=== PATIENT | male | born 1945 | race Caucasian/White ===

== ENCOUNTER 2021-12-09 23:07 | Emergency (ER) | payer MEDICARE, MEDICAID, SELFPAY ==
[2021-12-10 00:41] VITALS: BP 152/87; PULSE 84; RESP 20; TEMP 37.1; O2SAT 96; BMI 27.9
[2021-12-10 01:01] LABS: Hematocrit 42.6 % (42.0-52.0); Hemoglobin 14.7 g/dl (14.0-18.0); Mean Corpuscular HGB Conc 34.5 g/dl (31.0-36.0); Mean Corpuscular Hemoglobin 30.9 pg (27.0-33.0); Mean Corpuscular Volume 89.5 fL (80.0-98.0); Mean Platelet Volume 10.3 fL (9.4-12.4); Platelet Count 215 X10*3/uL (160-400); Red Blood Count 4.76 X10*6/uL (4.60-5.80); Red Cell Distribution Width 14.8 % (11.0-16.0); White Blood Count 14.3 X10*3/uL (4.8-10.8)
[2021-12-10 01:14] LABS: Alanine Aminotransferase 28 U/L (0-40); Albumin Level 4.5 g/dL (3.5-5.0); Alkaline Phosphatase 119 U/L (39-117); Anion Gap 18 (12-20); Aspartate Amino Transferase 22 U/L (5-37); Bilirubin Total 0.7 mg/dL (0.0-1.0); Blood Urea Nitrogen 13 mg/dL (9-16); Calcium 9.3 mg/dL (8.4-10.2); Carbon Dioxide 23 mmol/L (22-29); Chloride 101 mmol/L (96-108); Creatinine Clr Calc Pharmacy 74.9; Estimated Glomerular Filt Rate > 60; Glucose Random 163 mg/dL (60-115); Potassium 3.9 mmol/L (3.3-5.1); Sodium 138 mmol/L (135-145); Total Protein 7.3 g/dL (6.5-8.0)
[2021-12-10 01:52] VITALS: BP 172/72; PULSE 74; RESP 16; TEMP 36.6; O2SAT 97
--- NOTE | 2021-12-10 05:03 | PC.NURSE ---
Assumed care of pt at 0500. Pt c/o neck pain/stiffness. Denies headache.
[2021-12-10 05:05] VITALS: BP 161/68; PULSE 75; RESP 13; O2SAT 96
--- NOTE | 2021-12-10 05:07 | PC.NURSE ---
VS assessed. h/o dm, cannot recall what meds he takes
--- NOTE | 2021-12-10 05:17 | ED_ITS ---
HPI - General Adult General Chief complaint: General Medical Stated complaint: LEFT NECK PAIN Time Seen by Provider: 12/10/21 05:17 Source: patient Mode of arrival: EMS Limitations: no limitations History of Present Illness HPI narrative: 76-year-old male patient who presents emergency department for evaluation neck pain x3 days. The patient states the pain came on gradually on the left side of his neck and the back of his head. He states the pain is a constant, dull tightness which is worse with movement. He states the pain is moderate intensity. He states that he is having difficulty moving his neck secondary to the pain. He has been taking Tylenol with some relief the pain. He states the pain now is spreading to the right side of his neck. He denied numbness or weakness. He denied loss of bowel or bladder control. He denied fever, chills, sore throat. Related Data Previous Rx's Medication Instructions Recorded cyclobenzaprine 5 mg tablet 5 mg PO TID PRN muscle spasm or 12/10/21 pain #14 tabs Allergies Allergy/AdvReac Type Severity Reaction Status Date / Time Sulfa (Sulfonamide Allergy Mild RASH Unverified 12/25/19 15:18 Antibiotics) [Sulfa (Sulfonamides)] lisinopril [LISINOPRIL] Allergy Unknown UNKNOWN Unverified 12/25/19 15:18 losartan [LOSARTAN] Allergy Unknown UNKNOWN Unverified 12/25/19 15:18 sulfamethoxazole Allergy Unknown UNKNOWN Unverified 12/25/19 15:18 [SULFAMETHOXAZOLE] Review of Systems Review of Systems: Yes all other systems are reviewed and are negative [facility] Past Medical History [facility] Narrative: Past medical history: Diabetes mellitus-recently diagnosed. Social history: The patient smokes 1 pack of cigarettes per day times many years. Denies alcohol use. Denies drug use. He states he lives with his partner for 40 years and has 3 stepdaughters. Social History Social History Alcohol intake: never Patient Tobacco Use Status: Current someday Tobacco user Smoked in Last 30 Days: Yes Advance Directives: No Physical Exam ED Vital Signs: Vital Signs - 24 hr 12/10/21 00:41 12/10/21 01:52 12/10/21 05:05 Temperature 98.7 F 97.8 F Pulse Rate 84 74 75 Respiratory Rate 20 16 13 Blood Pressure 152/87 H 172/72 H 161/68 H Pulse Oximetry 96 97 96 Oxygen Delivery Method Room Air Room Air Room Air BMI result Body Mass Index 27.9 Const General: cooperative and no acute distress Orientation/consciousness: oriented to person and oriented to place Limitations: no limitations HENMT Head: Yes normal to inspection, Yes normocephalic and Yes atraumatic Ears: external ears normal General nose exam: Normal external nose present Face and sinus: Yes normal facial exam Mouth: Normal oral and palatal mucosa present Throat: Yes posterior oropharynx normal Eyes General: appearance normal, both eyes and all related structures Pupils: Equal, round and reactive pupils present Neck Other: The patient has moderate to severe tenderness palpation of his left trapezius muscle with spasm of this muscle. He has [id number] tenderness palpation of his right trapezius muscle with no spasm. There is no cervical spine tenderness. Neck: Yes normal visual inspection, Yes no lymphadenopathy, Yes trachea midline and Yes supple Chest Chest palpation & inspection: normal inspection of the chest and normal palpat ion of entire chest wall Resp Effort & Inspection: normal respiratory effort and able to speak in complete sentences Auscultation: clear to auscultation bilaterally Cardio Rate: regular rate Rhythm: regular rhythm Heart sounds: S1 normal heart sound present, S2 normal heart sound present and no murmurs GI Inspection: Yes normal to inspection Palpation (GI): Soft to palpation, nontender and no guarding Auscultation: normal bowel sounds General: Yes no CVA tenderness Back/Spine/Pelvis Back: no CVA tenderness Skin General skin exam: no rashes or lesions noted Neuro General: oriented to person and oriented to place Cranial nerves: Yes CN's II-XII intact bilaterally and Yes Equal, round and reactive pupils present Cognition (Neuro): normal cognition Motor exam (neuro): 5/5 motor strength present throughout Extrem General: Yes normal to inspection Psych Appearance: grossly normal Speech and movement: Normal speech and movement present Affect: normal affect Attitude: cooperative Thought process: Normal thought process present Thought content: Normal thought content present Course Course Course Narrative: 76-year-old female who presents emergency department for evaluation of neck pain x3 days which is got progressively worse. The patient has been taking Tylenol with some relief his pain. He has had no concerning symptoms such as fever, chills, numbness, weakness, loss of bowel or bladder control. His vital signs revealed elevated blood pressure of 152/87 otherwise was unremarkable. Examination did reveal tenderness palpation of the left and right trapezius muscles with the left being greater than right and spasm of the left trapezius muscles. He has no cervical spine tenderness. Patient's presentation is consistent with muscle strain with spasm. Patient was given cyclobenzaprine 5 mg orally and ibuprofen 400 mg orally. He was prescribe cyclobenzaprine 5 mg 3 times a day as needed for spasm and pain and advised to take ibuprofen and Tylenol. He was given printed and verbal instructions and discharged home Medical Decision Making Lab Data Result diagrams: 12/10/21 00:54 12/10/21 00:54 Labs: Lab Results 12/10/21 12/10/21 Range/Units 00:54 00:54 WBC 14.3 H (4.8-10.8) X10*3/uL RBC 4.76 (4.60-5.80) X10*6/uL Hgb 14.7 (14.0-18.0) g/dl Hct 42.6 (42.0-52.0) % MCV 89.5 (80.0-98.0) fL MCH 30.9 (27.0-33.0) pg MCHC 34.5 (31.0-36.0) g/dl RDW 14.8 (11.0-16.0) % Plt Count 215 (160-400) X10*3/uL MPV 10.3 (9.4-12.4) fL Absolute Nucleated RBC 0.000 (0.0-0.012) X10*3/uL Nucleated RBC % (auto) 0.0 (0.0-0.2) /100WBC Sodium 138 (135-145) mmol/L Potassium 3.9 (3.3-5.1) mmol/L Chloride 101 (96-108) mmol/L Carbon Dioxide 23 (22-29) mmol/L Anion Gap 18 (12-20) BUN 13 (9-16) mg/dL Creatinine 0.98 (0.5-1.4) mg/dL Estim Creat Clear Calc 74.9 Estimated GFR > 60 Random Glucose 163 H (60-115) mg/dL Calcium 9.3 (8.4-10.2) mg/dL Total Bilirubin 0.7 (0.0-1.0) mg/dL AST 22 (5-37) U/L ALT 28 (0-40) U/L Alkaline Phosphatase 119 H (39-117) U/L Total Protein 7.3 (6.5-8.0) g/dL Albumin 4.5 (3.5-5.0) g/dL Discharge Plan Discharge Clinical Impression: Acute cervical myofascial strain Qualifiers: Encounter type: initial encounter Qualified Code(s): S16.1XXA - Strain of muscle, fascia and tendon at neck level, initial encounter Patient Disposition: Home, Self-Care Instructions: Cervical Strain (ED) Additional Instructions: Your exam is consistent with a sprain of the muscles of your neck and spasm of your neck muscles. Take Flexeril (cyclobenzaprine) 5 mg pills, 1 pill every 6-8 hours as needed for pain or spasm. This medication will make you sleepy. Do not drive or work while taking this medication. Take ibuprofen 200 mg pills, 2 pills every 6 hours as needed for pain. Take Tylenol (acetaminophen) 500 mg pills, 2 pills every 4 to 6 hours as needed for pain. Apply ice to the muscles or neck for 10-15 minutes 4 times a day, this should help reduce the pain and spasm. Follow-up with your doctor in 2 days. Please return to the emergency department if your symptoms get worse or if you develop any symptoms that are concerning to you. Prescriptions: New cyclobenzaprine 5 mg tablet 5 mg PO TID PRN (Reason: muscle spasm or pain) Qty: 14 0RF
[2021-12-10] MEDS: Ibuprofen 400 MG TABLET PO (05:40)
[2021-12-10] MEDS: Cyclobenzaprine HCl 5 MG TABLET PO (05:41)
--- NOTE | 2021-12-10 05:42 | PC.NURSE ---
administered meds per MAR
[2021-12-10 05:50] VITALS: BP 158/71; PULSE 78; RESP 18; O2SAT 96
--- NOTE | 2021-12-10 05:54 | PC.NURSE ---
Contacted pt's friend Mei for him to be picked up. Pt to be discharged and is waiting on ride.
== END 2021-12-10 06:55 | disposition home or self-care (01) ==
PROVIDERS: Emergency Provider Emergency Medicine Emergency Medical Services; PCP Internal Medicine
DX: S16.1XXA Strain of muscle, fascia and tendon at neck level, initial encounter (principal); X58.XXXA Exposure to other specified factors, initial encounter; F17.200 Nicotine dependence, unspecified, uncomplicated; Y93.9 Activity, unspecified; Y92.9 Unspecified place or not applicable; Y99.9 Unspecified external cause status
CPT/HCPCS: 36415; 80053; 85027; 99283; 99284

== ENCOUNTER 2023-08-05 08:51 | Inpatient (IN) | payer MEDICARE, MEDICAID, SELFPAY ==
[2023-08-05] VITALS (16 sets, daily range): BP systolic 114–217; BP diastolic 53–129; PULSE 60–93; RESP 14–20; TEMP 36–36.8; O2SAT 94–99; BMI 31.3; BMI 30.7
--- NOTE | ~2023-08-05 | CT_ITS ---
EXAMINATION: CT HEAD WITHOUT CONTRAST (STROKE PROTOCOL) CLINICAL INFORMATION: Stroke protocol. Right-sided deficits. COMPARISON: CT brain dated 04/20/2011. TECHNIQUE: Contiguous axial imaging was performed from the skull base to vertex without intravenous administration of contrast. This CT examination was performed using dose optimization techniques as appropriate, variously including the following: *Automated exposure control *Adjustment of mA and/or kV according to patient size (this includes techniques or standardized protocols for targeted exams where dose is matched to indication/reason for exam; i.e. extremities or head) *Use of iterative reconstruction technique DLP: 690 mGy-cm FINDINGS: The ventricles and sulci are enlarged consistent with diffuse atrophy. No visualized masses or midline shift are seen. There is no intra-axial or extra-axial hemorrhage. There are no fluid collections. Decreased attenuation is seen in the periventricular white matter compatible with chronic small vessel ischemic disease. The mercer-white discrimination is preserved. The included paranasal sinuses and mastoid air cells are well aerated. The calvarium is intact. CT/CT head for stroke IMPRESSION: No intracranial hemorrhage or mass effect. Generalized atrophy and chronic small vessel white matter ischemic changes. This critical result was discussed with Dr. Yin at 9:10 AM hours on 08/05/2023. It was ascertained that the content and urgency of the report was understood at the time of direct communication.
--- NOTE | ~2023-08-05 | XR_ITS ---
EXAMINATION: XR TIBIA AND FIBULA, RIGHT CLINICAL INFORMATION: Pre-MRI question bb mid lower leg COMPARISON: None available. TECHNIQUE: AP and lateral views of the right tibia and fibula were obtained. FINDINGS: No acute visible fracture or dislocation. Potential enthesopathy along the inferior margin of the lateral malleolus. Joint space alignment are maintained. No radiopaque foreign body identified. Soft tissues are unremarkable. XR/XR tibia fibula RT 2V IMPRESSION: 1. No acute visible fracture or dislocation. 2. Potential enthesopathy along the inferior margin of the lateral malleolus. 3. No radiopaque foreign body identified.
--- NOTE | ~2023-08-05 | CT_ITS ---
EXAMINATION: CT HEAD WITHOUT CONTRAST CLINICAL INFORMATION: Altered mental status. COMPARISON: 08/05/2023. MRI performed 08/05/2023. TECHNIQUE: Contiguous axial imaging was performed from the skull base to vertex without intravenous administration of contrast. This CT examination was performed using dose optimization techniques as appropriate, variously including the following: *Automated exposure control *Adjustment of mA and/or kV according to patient size (this includes techniques or standardized protocols for targeted exams where dose is matched to indication/reason for exam; i.e. extremities or head) *Use of iterative reconstruction technique DLP: 672 mGy-cm FINDINGS: There is again seen cerebral volume loss with prominence of the lateral and the third ventricles. The cortical sulci are widened appropriately. The fourth ventricle and basal cisterns are normally outlined. There is again seen mild to moderate bilateral periventricular and central white matter image attenuation. The small areas of infarction seen on MRI are not appreciated on CT scan. There is no acute territorial defect, hemorrhage or midline shift. The extra-axial spaces are unremarkable. Calvarium: Intact. Maxillofacial sinuses and mastoids: Clear as visualized. CT/CT head/brain wo IV con IMPRESSION: 1. No acute intracranial process seen. The small infarct seen on MRI is not appreciated on CT. 2. Mild to moderate cerebral volume loss with chronic small vessel ischemic changes.
--- NOTE | ~2023-08-05 | CT_ITS ---
EXAMINATION: CTA NECK WITH CONTRAST (STROKE) CTA BRAIN WITH CONTRAST (STROKE) CLINICAL INFORMATION: Right-sided deficit COMPARISON: None available. TECHNIQUE: CTA of the head and neck was performed in the axial plane from the mediastinum to the skull vertex using 140 mL Omnipaque 350 intravenous contrast. Additional reformatted multiplanar images including maximum intensity projection MIP images are generated on the CT workstation. This CT examination was performed using dose optimization techniques as appropriate, variously including the following: *Automated exposure control *Adjustment of mA and/or kV according to patient size (this includes techniques or standardized protocols for targeted exams where dose is matched to indication/reason for exam; i.e. extremities or head) *Use of iterative reconstruction technique DLP: 1513 mGy-cm FINDINGS: The degree of stenosis determined by criteria similar to NASCET. CTA NECK: The aortic arch and origin/proximal segments of the great vessels are opacified above the [id number]. The visualized segments of the bilateral subclavian arteries are patent. The visualized cervical segments of the common carotid arteries are patent bilaterally. The common carotid artery bifurcations demonstrate mural calcifications extending into the proximal segments of the cervical internal carotid arteries bilaterally. There is approximately 50% focal stenosis of the proximal left cervical ICA and 70% focal stenosis of the proximal right cervical ICA. There are remaining segments of the cervical internal carotid arteries are patent bilaterally. Calcified atherosclerotic plaque at the origin of the left vertebral artery causing at least moderate to severe stenosis. The origin of the right vertebral artery is patent. The cervical segments of the vertebral arteries are patent bilaterally. No other site of hemodynamically significant stenosis, dissection, or aneurysm. The visualized branches of the external carotid arteries are unremarkable bilaterally. CTA HEAD: Mild atherosclerotic calcifications of the bilateral carotid siphons. Anterior circulation: The petrous, cavernous, and supraclinoid segments of the internal carotid arteries are patent bilaterally. The major branches of the anterior and middle cerebral arteries as well as the anterior communicating artery complex are patent. No large vessel occlusion, saccular aneurysm, or dissection. Posterior circulation: The intracranial vertebral arteries are patent bilaterally. The basilar artery is normal in caliber however tortuous. The posterior cerebral and superior cerebellar arteries arise normally from the basilar summit. No aneurysm. On delayed imaging, the venous structures demonstrate normal contrast opacification. No filling defect. No abnormal intraparenchymal enhancement. Soft tissues: No suspicious neck mass or cervical adenopathy. Lungs: Emphysematous changes in the visualized lung apices. Bones: No acute osseous abnormality. No lytic or blastic osseous lesions. Multilevel degenerative changes of the visualized spine. CT/CT angio head neck stroke IMPRESSION: -CTA head demonstrates no large vessel occlusion, saccular aneurysm, or dissection. -CTA neck demonstrates approximately 70% focal stenosis of the proximal right cervical ICA and 50% focal stenosis of the proximal left ICA. There is also a calcified atherosclerotic plaque causing at least moderate to severe focal stenosis of the left vertebral artery origin. Please note that the aortic arch and origin/proximal segments of the great vessels are outside of the [id number].
--- NOTE | ~2023-08-05 | MR_ITS ---
EXAMINATION: MR BRAIN WITHOUT CONTRAST CLINICAL INFORMATION: Result right-sided deficit. COMPARISON: CT scan of the head and CTA of the head and neck earlier 08/05/2023. TECHNIQUE: MRI of the brain was obtained using routine sequences without contrast. The study was limited due to patient claustrophobia and axial T2 images were not obtained. FINDINGS: There are multiple small foci of increased diffusion signal in the left splenium of the corpus callosum which has corresponding low ADC map signal and has hyperintense FLAIR signal, consistent with an evolving acute infarct. In addition, there are multiple small foci of increased diffusion signal without restriction and with corresponding hyperintense FLAIR signal in the bilateral centra semiovale, consistent with subacute infarcts. No mass effect or midline shift is seen. The ventricles and sulci commensurately prominent consistent with diffuse volume loss. There are patchy scattered areas of increased FLAIR signal in the periventricular and subcortical white matter, most consistent with chronic microvascular ischemic disease. There are chronic infarcts in the anterior frontal lobes adjacent to the anterior horns of the lateral ventricles, and also in the bilateral centra semiovale and basal ganglia. No extra-axial fluid collections are seen. The brainstem appears normal. There are numerous punctate foci of low gradient signal in the subcortical regions of the bilateral cerebral and cerebellar hemispheres, which may be consistent with cerebral amyloid angiopathy. The cerebellar tonsils have normal contour and position, and the craniocervical junction appears normal. Marrow signal and midline structures are normal. The major intracranial flow-voids at the level of the [place] are preserved. The dural venous sinus flow-voids are maintained. The mastoid air cells and paranasal sinuses are well-aerated. MR/MR head/brain wo con IMPRESSION: 1. There is a small focus of increased diffusion signal with restriction in the left splenium of the corpus callosum, consistent with an evolving acute infarct. In addition, there are multiple small foci of increased diffusion signal without restriction in the bilateral centra semiovale, consistent with subacute infarcts. 2. There is diffuse volume loss. There are chronic microvascular ischemic changes and chronic infarcts. 3. There is no evidence of a large acute territorial infarct or acute hemorrhage There are numerous punctate foci of low gradient signal in the subcortical regions of the bilateral cerebral and cerebellar hemispheres, which may be consistent with cerebral amyloid angiopathy. 4. This critical result was discussed with Thania Yin by telephone on 08/05/2023 at 1:40 PM and it was ascertained that the content and urgency of the report was understood at the time of direct communication.
--- NOTE | 2023-08-05 08:54 | ECG_ITS ---
Test Reason : STROKE Blood Pressure : / mmHG Vent. Rate : 097 BPM Atrial Rate : 097 BPM P-R Int : 180 ms QRS Dur : 150 ms QT Int : 384 ms P-R-T Axes : -02 -20 110 degrees QTc Int : 487 ms Normal sinus rhythm Left bundle branch block Abnormal ECG When compared with ECG of 06-OCT-2019 21:42, No significant change was found Referred By: Thania Yni Electronically Signed By:SANGEETA ROSARIO
--- NOTE | 2023-08-05 08:55 | ED.NEUROSD ---
HPI - Neuro Symptoms/Deficit General Chief Complaint: Stroke Stated Complaint: R SIDED WEAKNESS SLURRED SPEECH Time Seen by Provider: 08/05/23 08:53 Source: patient and EMS Mode of arrival: EMS History of Present Illness HPI Narrative: 77-year-old male, everyday smoker, denies any chronic anticoagulation presents via EMS with sudden onset of inability to move right upper and lower extremity although sensation is intact, initially had slurred speech which has resolved also reported a headache which has resolved, EMS notes that he is hypertensive. Related Data Previous Rx's ?Medication ?Instructions ?Recorded cyclobenzaprine 5 mg tablet 5 mg PO TID PRN muscle spasm or 12/10/21 pain #14 tabs Allergies Allergy/AdvReac Type Severity Reaction Status Date / Time Sulfa (Sulfonamide Allergy Mild RASH Verified 08/05/23 09:35 Antibiotics) [Sulfa (Sulfonamides)] lisinopril [LISINOPRIL] Allergy Unknown UNKNOWN Verified 12/10/21 05:46 losartan [LOSARTAN] Allergy Unknown UNKNOWN Verified 12/10/21 05:46 sulfamethoxazole Allergy Unknown UNKNOWN Verified 12/10/21 05:46 [SULFAMETHOXAZOLE] Review of Systems Review of Systems: Pertinent positives and negatives as stated in HPI PMFSH Past Medical History Source: nursing notes reviewed Social History Social History Alcohol intake: never Patient Tobacco Use Status: Current someday Tobacco user Smoked in Last 30 Days: Yes Use of substances other than those prescribed or required for medical reasons: No Advance Directives: No Advance Directives Information Provided: No Physical Exam Vital Signs: Vital Signs: Last Vital Signs Temp 96.8 F 08/05/23 09:18 Pulse 87 08/05/23 09:56 Resp 14 08/05/23 09:18 BP 176/85 H 08/05/23 09:59 Pulse Ox 99 08/05/23 09:18 O2 Del Method Room Air 08/05/23 09:18 BMI result Body Mass Index 31.3 VITAL SIGNS: Reviewed. GENERAL: Well developed, well nourished, in no acute distress. HEAD: Normocephalic/atraumatic EYES: PERRLA, EOMI EARS: Ext canals without abnormality NOSE: Nares patent bilateral OROPHARYNX: no oral lesions noted, posterior pharynx clear NECK: Supple, no adenopathy LUNGS: Normal breath sounds. No adventitious sounds or accessory muscle use. CARDIOVASCULAR: Regular rate and rhythm without noted murmurs, no JVD or lower extremity edema. ABDOMEN: Soft, non-tender, non-distended with bowel sounds. MUSCULOSKELETAL: No tenderness, deformities, or effusions noted on gross inspection. EXTREMITIES: No cyanosis, clubbing or edema. SKIN: Inspection of the skin reveals no rashes. NEUROLOGIC: Alert and oriented x 4. Please see NIH stroke scale Medications Administered Discontinued Medications Generic Name Dose Route Start Last Admin Trade Name Frenatalya PRN Reason Stop Dose Admin Iohexol 70 ml 08/05/23 09:19 08/05/23 09:21 Iohexol 350 Mg/Ml 100 Ml Infus..Btl IV 08/05/23 09:20 70 ml ONCE ONE Administration Labetalol HCl 5 mg 08/05/23 08:53 08/05/23 09:15 Labetalol Hcl 100 Mg/20 Ml Vial IVPUSH 08/05/23 08:54 5 mg ONCE ONE Administration Labetalol HCl 10 mg 08/05/23 09:37 08/05/23 09:41 Labetalol Hcl 100 Mg/20 Ml Vial IVPUSH 08/05/23 09:38 10 mg ONCE ONE Administration Labetalol HCl 10 mg 08/05/23 09:54 08/05/23 09:56 Labetalol Hcl 100 Mg/20 Ml Vial IVPUSH 08/05/23 09:55 10 mg ONCE ONE Administration Medical Decision Making Medical Decision Making MDM Narrative: 77-year-old male with history and clinical presentation, NIH-5, patient within the window, patient will receive 5 mg of labetalol for persistent hypertension as indicated in his long as no bleed patient will receive TNK. 0857: Called neurologist on-call who agrees with TNK if BP and no bleed or LVO(this would be discussed with neurointerventionalist) 0910: [facility] chronic atrophy. 0939: Repeat NIH demonstrates full range of motion and resolution of right upper extremity symptoms but right lower extremity still remains with small effort against gravity. IV infiltrated in the CT scanner, at to replace IV access and obtain CT angio of head and neck. Despite 5 mg of labetalol patient remains hypertensive and this was then followed by an additional 10 mg of labetalol at 09:37, patient remains hypertensive an additional 10 mg of labetalol is ordered and if unsuccessful will proceed with IV labetalol drip so that TNK can be given. 1004: CT angio head/neck no elbow, SBP-176, patient appears to have complete resolution of right upper and lower extremity deficits. Although there is noted 70% focal stenosis of the proximal right ICA in 50% of proximal left ICA. Will contact Dr. Decker to ensure that we will still proceed with TNK as patient has had complete resolution of symptoms although not necessarily associated with aggressive blood pressure control. NIH-0 1007: Dr. Decker agrees with proceeding with aspirin/MRI and no TNK at this time. 1014: I discussed case with inpatient hospitalist who accepts admission. I reviewed all investigations and hematologic indices are negative for leukocytosis/anemia/thrombocytopenia. Point of care INR within normal limits but laboratory coagulation studies are pending. Chemistry indices are negative for LEA or electrolyte derangements, CK is noted to be mildly elevated, patient does have an left bundle-branch block on EKG without complaints of chest pain or discomfort but high sensitivity troponin is pending, patient received aspirin and routine MRI has been ordered. Differential Diagnosis Differential Diagnoses: The differential diagnosis associated with the presentation includes Please see the discussion above Admission/Observation Consideration of admission/observation: Escalation of care including admission/observation considered Please see the discussion above Consult Healthcare Provider Management of the patient was discussed with: Hospitalist and Slurry Man Please see the discussion above Lab Data MDM Lab Attestation statement: I reviewed the patient's lab results. Please see the discussion above 08/05/23 09:43 08/05/23 09:43 Labs: Lab Results 08/05/23 08/05/23 Range/Units 09:32 09:43 WBC 8.9 (4.8-10.8) X10*3/uL RBC 4.98 (4.60-5.80) X10*6/uL Hgb 15.7 (14.0-18.0) g/dl Hct 45.5 (42.0-52.0) % MCV 91.4 (80.0-98.0) fL MCH 31.5 (27.0-33.0) pg MCHC 34.5 (31.0-36.0) g/dl RDW 14.2 (11.0-16.0) % Plt Count 199 (160-400) X10*3/uL MPV 11.3 (9.4-12.4) fL Immature Gran % (Auto) 0.3 (0.0-0.4) % Neut % (Auto) 75.9 H (45-73) % Lymph % (Auto) 11.5 L (20-40) % [place] % (Auto) 8.9 (2-11) % Eos % (Auto) 1.8 (0-4) % Baso % (Auto) 1.6 (0-2) % Lymph # (Auto) 1.0 L (1.2-4.9) X10*3/uL [place] # (Auto) 0.8 (0.1-1.2) X10*3/uL Eos # (Auto) 0.2 (0.0-0.4) X10*3/uL Baso # (Auto) 0.1 (0.0-0.2) X10*3/uL Abs Immat Gran (auto) 0.03 (0.00-0.03) X10*3/uL Absolute Neuts (auto) 6.7 (2.0-8.3) x10*3/uL Absolute Nucleated RBC 0.000 (0.0-0.012) X10*3/uL Nucleated RBC % (auto) 0.0 (0.0-0.2) /100WBC Sodium 138 (135-145) mmol/L Potassium 3.9 (3.3-5.1) mmol/L Chloride 103 (96-108) mmol/L Carbon Dioxide 25 (22-29) mmol/L Anion Gap 14 (12-20) BUN 10 (9-16) mg/dL Creatinine 0.90 (0.5-1.4) mg/dL Estim Creat Clear Calc 79.7 Estimated GFR > 60 POC Glucose 136 H (60-115) mg/dL Random Glucose 140 H (60-115) mg/dL Calcium 9.4 (8.4-10.2) mg/dL Total Creatine Kinase 426 H (38-174) U/L Independent Interpretation I performed an independent interpretation of an: EKG Interpretation: Normal sinus rhythm, LBBB, HR-97, no STEMI, VA/QTC are within normal limits. There is no EKG for comparison. Radiology Impression Discussion of test interpretation with radiology: I have reviewed the radiologist's reading. Radiologist Impression: Please see the discussion above External Record Review External record reviewed: Outpatient record and Prior outpatient labs Chronic Conditions Patient?s care impacted by: Hypertension NIH Stroke Scale Internal: Initial- Upon Arrival Level of Consciousness: Alert Level of Consciousness Questions: Answers both questions correctly Level of Consciousness Commands: Performs both tasks correctly Best Gaze: Normal Visual: No visual loss Facial Palsy: Normal Motor Arm (Right): No movement Motor Arm (Left): No drift Motor Leg (Right): No movement Motor Leg (Left): No drift Limb Ataxia: Absent Sensory: Normal Best Language: No aphasia Dysarthia: Normal Extinction and Inattention: No abnormality Score: 8 Critical Care Time Critical Care Time Critical Care Time: Yes Total Critical Care Time: 60 Attestation: I personally attest to this time spent taking care of the patient. Discharge Plan Discharge Clinical Impression: Malignant hypertension, Brain TIA Patient Disposition: Admitted As Inpatient Print Language: Kiswahili
[2023-08-05] MEDS: Labetalol HCL 100 MG/20 ML VIAL IVPUSH (09:15)
[2023-08-05] MEDS: iohexoL 350 MG/ML 100 ML INFUS..BTL 70 ML IV (09:21)
[2023-08-05 09:37] LABS: Glucose, Whole Blood 136 mg/dL (60-115)
[2023-08-05] MEDS: Labetalol HCL 100 MG/20 ML VIAL 10 MG IVPUSH ×3 (09:41→10:56)
[2023-08-05 09:51] LABS: MANUAL DIFF FLAG NO
[2023-08-05 10:07] LABS: Anion Gap 14 (12-20); Basophils Absolute Auto 0.1 X10*3/uL (0.0-0.2); Basophils Percent Auto 1.6 % (0-2); Blood Urea Nitrogen 10 mg/dL (9-16); Calcium 9.4 mg/dL (8.4-10.2); Carbon Dioxide 25 mmol/L (22-29); Chloride 103 mmol/L (96-108); Creatinine Clr Calc Pharmacy 79.7; Eosinophils Absolute Auto 0.2 X10*3/uL (0.0-0.4); Eosinophils Percent Auto 1.8 % (0-4); Estimated Glomerular Filt Rate > 60; Glucose Random 140 mg/dL (60-115); Hematocrit 45.5 % (42.0-52.0); Hemoglobin 15.7 g/dl (14.0-18.0); Imm Gran Abs Auto 0.03 X10*3/uL (0.00-0.03); Imm Gran Pct Auto 0.3 % (0.0-0.4); Lymphocytes Percent Auto 11.5 % (20-40); Mean Corpuscular HGB Conc 34.5 g/dl (31.0-36.0); Mean Corpuscular Hemoglobin 31.5 pg (27.0-33.0); Mean Corpuscular Volume 91.4 fL (80.0-98.0); Mean Platelet Volume 11.3 fL (9.4-12.4); Monocytes Absolute Auto 0.8 X10*3/uL (0.1-1.2); Monocytes Percent Auto 8.9 % (2-11); Neutrophils Absolute Auto 6.7 x10*3/uL (2.0-8.3); Neutrophils Percent Auto 75.9 % (45-73); Platelet Count 199 X10*3/uL (160-400); Potassium 3.9 mmol/L (3.3-5.1); Red Blood Count 4.98 X10*6/uL (4.60-5.80); Red Cell Distribution Width 14.2 % (11.0-16.0); Sodium 138 mmol/L (135-145); White Blood Count 8.9 X10*3/uL (4.8-10.8)
[2023-08-05 10:15] LABS: INTERNATIONAL NORM RATIO 0.9 (0.9-1.1); Prothrombin Time 11.5 SEC (11.1-13.3); Troponin-I High Sensitivity 9.3 ng/L (<3.5-35.0)
[2023-08-05 10:18] LABS: Partial Thromboplastin Time 30.3 SEC (26.0-36.8)
[2023-08-05 10:32] LABS: Prothrombin Time Whole Bld POC 13.1 sec (11.1-13.5); ~PT, ~INR - Anti Coag Clinic 1.1 (0.9-1.1)
[2023-08-05] MEDS: Aspirin 81 MG TAB.CHEW 324 MG PO (10:47)
[2023-08-05] MEDS: Morphine Sulfate 2 MG/ML CARTRIDGE 1 MG IVPUSH (10:47)
[2023-08-05 11:17] LABS: Estimated Average Glucose 140 mg/dL; Hemoglobin A1c % 6.5 % (<6.0)
[2023-08-05 11:19] LABS: Cholesterol 285 mg/dL (<200); HDL Cholesterol 41 mg/dL (>40); LDL Cholesterol Calculated 190 mg/dL (<100); Triglycerides 273 mg/dL (<150)
--- NOTE | 2023-08-05 11:21 | PHA.MEDREC ---
Pharmacy Consult ? Medication Reconciliation Pharmacy has completed the medication reconciliation. spoke with patient to confirm. He reports that he was taking a garlic and parsley combo pill he orders from [facility] but ran out and has not been taking. He ordered prevagen but has not started taking.
[2023-08-05] MEDS: Enoxaparin Sodium 40 MG/0.4 ML SYRINGE SUBCUT (11:25)
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
[2023-08-05 12:20] LABS: Stroke Lab Use COMPLETE
--- NOTE | 2023-08-05 13:02 | PM.EVENT ---
Event Note Date of Service: 08/05/23 Event Note: PT reporting confusion, slurred speech, R hand numbness and feeling funny and weak all over . He is here with TIA, brain MRI pending. BP on admission 205/109, 198/100. Given 10mg IV labetalol. BP now 129/59. On exam, pt seems foggy but a&ox3. Strength BUE 5/5, RLE 4/5, LLE 5/5. Speech somewhat slurred. CN II-XII otherwise in tact. Head CT ordered given increased confusion with rapid drop in bp during following acute tia Time Spent With Patient Time: Total time managing care of this patient today ____ minutes.
[2023-08-05] MEDS: 0.9 % Sodium Chloride 1,000 ML 999 ML IV (13:11)
[2023-08-05] MEDS: Midodrine HCl 10 MG TABLET PO (13:13)
[2023-08-05 13:16] LABS: Glucose, Whole Blood 171 mg/dL (60-115)
[2023-08-05] MEDS: glucagon HCL 1 MG VIAL 5 MG IVPUSH (14:43)
--- NOTE | 2023-08-05 15:40 | PC.NURSE ---
At approx 1306 patient has a slight right facial droop and bilateral hand grasps are much weaker than previous, his right leg is also weak. Attending is at bedside along with Lelo Dobbins. BP is more stable and further orders are given.
[2023-08-05 16:04] LABS: Glucose, Whole Blood 230 mg/dL (60-115)
[2023-08-05] MEDS: Insulin Lispro 100 UNIT/ML 3 ML VIAL SUBCUT ×2 (16:55→20:21)
[2023-08-05] MEDS: 0.9 % Sodium Chloride Flush 3 ML SYRINGE IVFLUSH ×2 (16:58→20:18)
--- NOTE | 2023-08-05 17:00 | PC.NURSE ---
Pt arrived from ED on stretcher able to stand pivot to bed with 2 staff assist. Oriented to room, call oscar system and staff. A&OX4 speech clear, very mild right mouth droop at rest, flat nasolabial fold, tongue midline. DES[place]ANDE to command RUE 3/5, RLE 4/5 left side 5/5 to command, pt reports numbness/tingling resolved from previous to right, sensation intact. Denies headache, dizziness or vision changes pupils R 3 sluggish, L 3 brisk, tracks appropriate no nystagmus noted. LS dim denies SOB or CP, NS on tele with first degree HB and BBB in 70-80's. BS+X4 abdomen soft non-tender denies nausea/vomiting. Denies pain/discomfort. Voiding in urinal without difficulty clear yellow urine. Resting in bed comfortably call oscar within reach bed alarm for safety
[2023-08-05 19:54] LABS: Glucose, Whole Blood 193 mg/dL (60-115)
[2023-08-06] VITALS: BP 128/64; PULSE 69; RESP 20; TEMP 36.3; O2SAT 96
--- NOTE | 2023-08-06 01:13 | PM.EVENT ---
Event Note Date of Service: 08/06/23 Event Note: Patient admitted with acute CVA. Nurse reported worsening of right-sided weakness. Will obtain CT head to rule out hemorrhagic conversion Time Spent With Patient Time: Total time managing care of this patient today ____ minutes.
[2023-08-06 04:00] VITALS: BP 137/66; PULSE 68; RESP 18; TEMP 36.3; O2SAT 96
[2023-08-06 06:39] LABS: MANUAL DIFF FLAG NO
[2023-08-06 06:50] LABS: Basophils Absolute Auto 0.1 X10*3/uL (0.0-0.2); Basophils Percent Auto 1.3 % (0-2); Eosinophils Absolute Auto 0.1 X10*3/uL (0.0-0.4); Eosinophils Percent Auto 1.5 % (0-4); Hematocrit 41.9 % (42.0-52.0); Hemoglobin 14.1 g/dl (14.0-18.0); Imm Gran Abs Auto 0.03 X10*3/uL (0.00-0.03); Imm Gran Pct Auto 0.4 % (0.0-0.4); Lymphocytes Absolute Auto 1.1 X10*3/uL (1.2-4.9); Lymphocytes Percent Auto 13.4 % (20-40); Mean Corpuscular HGB Conc 33.7 g/dl (31.0-36.0); Mean Corpuscular Hemoglobin 31.1 pg (27.0-33.0); Mean Corpuscular Volume 92.5 fL (80.0-98.0); Mean Platelet Volume 12.1 fL (9.4-12.4); Monocytes Absolute Auto 0.7 X10*3/uL (0.1-1.2); Monocytes Percent Auto 8.8 % (2-11); Neutrophils Absolute Auto 5.9 x10*3/uL (2.0-8.3); Neutrophils Percent Auto 74.6 % (45-73); Platelet Count 184 X10*3/uL (160-400); Red Blood Count 4.53 X10*6/uL (4.60-5.80); Red Cell Distribution Width 14.5 % (11.0-16.0); White Blood Count 7.9 X10*3/uL (4.8-10.8)
[2023-08-06 06:58] LABS: Glucose, Whole Blood 126 mg/dL (60-115)
[2023-08-06 07:00] VITALS: BP 170/81; PULSE 76; RESP 20; TEMP 36.8; O2SAT 94
--- NOTE | 2023-08-06 07:00 | CA_ITS ---
Transthoracic Echocardiogram Patient (Last, First, Middle): Thai Rao C Gender: Male Date of : 1945 Age: 77 Procedure Date: 08/06/2023 Procedure Type: Transthoracic Echocardiogram [place] [facility] [place]: 177.8 cm Weight: 97.07 kg BSA: 2.15 m2 Heart Rate: 87 bpm BP: 170 / 81 mmHg Catalogue Illustrator: Referring MD: Lelo SAHA Symptoms: tia/cva Study Quality: Fair ECG Rhythm: Undetermined Conclusions: - LVEF difficult to assess, but suspect about 50-55%. - No obvious valvular pathology seen on this study. Findings Procedure Information Contrast agent, definity, is being given per protocol without apparent complications. Left Ventricle Normal left ventricular cavity size. There is paradoxical septal motion consistent with a left bundle branch block. Diastolic function is indeterminate on the basis of available data. LVEF difficult to assess, but suspect about 50-55%. Right Ventricle The right ventricle was not well visualized. There is low normal right ventricular systolic function. Atria Both atria are normal in size. Aortic Valve The aortic valve was not well visualized. There is no aortic valve stenosis. There is no aortic valve regurgitation. Mitral Valve The mitral valve was not well visualized. There is no mitral valve regurgitation. There is no mitral valve stenosis. Pulmonic Valve The pulmonic valve is likely normal. Tricuspid Valve There is no tricuspid valve regurgitation. Tricuspid regurgitation envelope is inadequate for calculation of right ventricular systolic pressure. Great Vessels The asc aorta is normal in size. Venous The inferior vena cava is normal in size and collapses greater than 50% with inspiration. Pericardium/Pleural There is no evidence of pericardial effusion. Prior Study Comparison No prior study available for comparison. Recommendations, Care & Conclusions No obvious valvular pathology seen on this study. Measurements 2D Linear Measurements IVSd: 1.46 0.6-0.9/0.6-1.0 cm LVIDd: 3.23 3.9-5.3/4.2-5.9 cm LVIDd Index: 1.50 2.4-3.2/2.2-3.1 cm/m2 LVIDs: 2.17 2.0-3.6 cm LVPWd: 1.46 0.7-1.1 cm LA Diam: 2.50 2.7-3.8/3.0-4.0 cm LAIDs Index: 1.16 1.5-2.3 cm/m2 LV Mass: 206.87 67-162/88-224 g LV Mass Index: 96.22 43-95/49-115 g/m2 LVOT Diam: 2.40 3.0+(-)1.3 cm 2D Systolic Function EF 4C: 53.20 >55% EF 2C: 64.40 >55% EF BiP: 59.20 >55% Mitral Valve MV Pk E: 1.30 MV Decel Time: 143.00 E'Lateral: 14.60 E'Medial: 15.20 E/E' Med: 8.60 E/E' Lat: 8.90 PHT: 42.00 MVA PHT: 5.24 Decel Tripp: 9.07 Aortic Valve AoV Pk Dariusz: 1.27 AoV Mn Dariusz: 0.91 AoV VTI: 0.26 AoV Pk Grad: 6.00 Aov Mn Grad: 4.00 MIKHAIL Cont.VTI: 3.13 LVOT LVOT Pk Dariusz: 0.91 LVOT Mn Dariusz: 0.68 LVOT VTI: 0.18 LVOT Pk Grad: 3.00 LVOT Mn Grad: 2.00 LVOT Diam: 2.40 LVOT Area: 4.52 Diastolic Function MV Pk E: 1.30 E'Medial: 15.20 E/E' Med: 8.60 E' Laterial: 14.60 E/E' Lat: 8.90 Right Ventricle TAPSE (mm): 19.70 TVS' Dariusz: 10.90 Tricuspid Valve TR Pk Dariusz: 1.57 TR Pk Grad: 10.00 RA Press: 3.00 RVSP: 13.00 Great Vessels Aorta Sinus of Valsalva: 3.40 2.0-3.5 cm Ao Asc: 3.40 2.1-3.4 cm Pulmonary Valve PV Pk Dariuzs: 1.36 Peak PV Grad: 7.00 Updated in Other Vendor System with Status of Final Mustapha Palmer MD electronically signed on 08/06/2023 12:01:59 PM with status of Final
[2023-08-06 07:05] LABS: Anion Gap 14 (12-20); Blood Urea Nitrogen 11 mg/dL (9-16); Calcium 9.1 mg/dL (8.4-10.2); Carbon Dioxide 24 mmol/L (22-29); Chloride 106 mmol/L (96-108); Cholesterol 239 mg/dL (<200); Creatinine Clr Calc Pharmacy 79.9; Estimated Glomerular Filt Rate > 60; Glucose Random 118 mg/dL (60-115); HDL Cholesterol 34 mg/dL (>40); LDL Cholesterol Calculated 169 mg/dL (<100); Potassium 3.9 mmol/L (3.3-5.1); Sodium 140 mmol/L (135-145); Triglycerides 181 mg/dL (<150)
--- NOTE | 2023-08-06 08:35 | PM.NEUROCN ---
History of Present Illness Data of Consult Service Date: 08/06/23 Primary Care Provider: None Physician HPI Reason for consult: Cerebral infarction 77 years old man with smoking and uncontrolled hypertension came to hospital with new onset of right-sided weakness. He was initially noted to have weakness an acute stroke protocol was initiated but his initial mean arterial pressure was almost 240. After his blood pressure was treated with emergency medicine his symptoms improved to minimum and treatment with intravenous tPA or TNK were not considered. Large vessel disease was not noted and he was admitted for further management. Now he was feeling better but still complaining of right-sided weakness. There was no associated headache nausea vomiting dizziness or chest symptoms. Review of Systems Review of Systems: No recent cold or flu-like illness. [facility] Past Medical History Medical History (Updated 08/06/23 @ 08:39 by Meng Decker MD) Obesity Hyperlipidemia Type 2 diabetes mellitus Cigarette smoker Carotid artery stenosis Atherosclerosis Social History Social History (Updated 08/05/23 @ 11:41 by YIFAN Fu) Household Members: Children Housing: House Do you presently have visiting nurse or other home services: No Alcohol intake: never Patient Tobacco Use Status: Current everyday Tobacco user Tobacco use type: Cigarette Cigarette Packs Per Day: 2 Cigarettes Per Day: 40.0 Years Smoked: 61 Meds Allergies Allergy/AdvReac Type Severity Reaction Status Date / Time Sulfa (Sulfonamide Allergy Mild RASH Verified 08/05/23 09:35 Antibiotics) [Sulfa (Sulfonamides)] lisinopril [LISINOPRIL] Allergy Unknown UNKNOWN Verified 12/10/21 05:46 losartan [LOSARTAN] Allergy Unknown UNKNOWN Verified 12/10/21 05:46 sulfamethoxazole Allergy Unknown UNKNOWN Verified 12/10/21 05:46 [SULFAMETHOXAZOLE] Active Medications: Current Medications Acetaminophen (Acetaminophen 325 Mg Tablet) 650 mg PO Q6H PRN PRN Reason: Pain, Mild (Pain Scale 1-3) Aspirin (Aspirin Enteric Coated 81 Mg Tablet.) 81 mg PO DAILY [facility] Atorvastatin Calcium (Atorvastatin Calcium 80 Mg Tablet) 80 mg PO DAILY [facility] Enoxaparin Sodium (Enoxaparin Sodium 40 Mg/0.4 Ml Syringe) 40 mg SUBCUT Q24H [facility] Last Admin: 08/05/23 11:25 Dose: 40 mg Glucose (Glucose Gel 15 Gm Gel..Gram.) 15 gm PO Q15M PRN; Protocol PRN Reason: per Hypoglycemia Standing Ord. Dextrose (D10) 250 mls @ 750 mls/hr IV Q15M PRN; Protocol PRN Reason: per Hypoglycemia Standing Ord. Insulin Human Lispro (Insulin Lispro 100 Unit/Ml 3 Ml Vial) 0 unit SUBCUT QIDACHS [facility]; Protocol Last Admin: 08/06/23 07:53 Dose: Not Given Ondansetron HCl (Ondansetron Hcl 4 Mg/2 Ml Vial) 4 mg IVPUSH Q8H PRN PRN Reason: Nausea and Vomiting Senna (Sennosides 8.6 Mg Tablet) 17.2 mg PO BEDTIME PRN PRN Reason: Constipation Sodium Chloride (0.9 % Sodium Chloride Flush 3 Ml Syringe) [facility] Last Admin: 08/05/23 20:18 Dose: 3 ml Home Medications ?Medication ?Instructions ?Recorded ?Confirmed ?Last Taken ?Type No Known Home Meds 08/05/23 08/05/23 Unknown History Physical Exam Vital Signs: Vital Signs: Last Vital Signs Temp 98.3 F 08/06/23 07:00 Pulse 76 08/06/23 07:00 Resp 20 08/06/23 07:00 BP 170/81 H 08/06/23 07:00 Pulse Ox 94 08/06/23 07:00 O2 Del Method Room Air 08/06/23 07:00 BMI result Body Mass Index 30.7 Neuro: Other: He is alert and awake with normal spontaneity of speech fluency comprehension and affect. There is mild right arm weakness and mild right leg weakness. Deep tendon reflexes are trace and plantars are flexor. There is no obvious facial asymmetry. Tongue is midline. Visual ta are full. Extraocular muscles are intact. Results Labs 08/06/23 06:09 08/06/23 06:09 Labs: Short CBC 08/05/23 08/06/23 Range/Units 09:43 06:09 WBC 8.9 7.9 (4.8-10.8) X10*3/uL Hgb 15.7 14.1 (14.0-18.0) g/dl Hct 45.5 41.9 L (42.0-52.0) % Plt Count 199 184 (160-400) X10*3/uL BMP 08/05/23 08/06/23 09:43 06:09 Sodium 138 140 Potassium 3.9 3.9 Chloride 103 106 Carbon Dioxide 25 24 BUN 10 11 Creatinine 0.90 0.89 Calcium 9.4 9.1 Cardiac Enzymes 08/05/23 Range/Units 09:43 Total Creatine Kinase 426 H (38-174) U/L Head CT revealed moderate diffuse cerebral atrophy and moderate chronic microvascular ischemic changes. MRI of brain revealed multiple small areas of restricted diffusion on both sides of brain. There was a lesion in left splenium and right juarez radiata area. CTA of brain did not reveal any significant middle cerebral artery disease. Left vertebral and extracranial carotid disease of moderate severity was noted. Assessment and Plan (1) Multiple cerebral infarctions: Status: Acute 77 years old man with uncontrolled hypertension and smoking presented with new onset of right-sided weakness. His evaluation reveals multiple bilateral small atherothrombotic ischemic infarctions of brain with very high blood pressure at presentation. Etiology of these lesions could be atherothrombotic disease from hypertension. Cardiac embolic phenomenon could not be completely ruled out. I do not think extracranial carotid disease or vertebral disease is the cause of the strokes. My recommendation is to provide better blood pressure control, statin, and continue anti-platelet therapy. Echocardiogram to assess his ejection fraction and overall cardiac function is also recommended. He should be fully educated about risk of uncontrolled blood pressure and smoking. He already has significant ischemic injury to brain in his risk of further stroke is high. Finally, PT OT consultation is recommended for for my evaluation of his abilities in proper plan for outpatient Procedures Date of Service Date of Service: 08/06/23
--- NOTE | 2023-08-06 09:03 | MHC.CM.PN ---
CM met with Patient and assisted him with the completion of a HCP; Patient named his Step-Daughter/Jeffy as his Agent. Patient had difficultly physically signing so IMM was addressed verbally with Patient(original given to Patient and a copy has been placed on the chart). Patient has no PCP. STR appears likely, pending PT eval; CM has initiated and will follow for dc planning.
[2023-08-06] MEDS: Aspirin Enteric Coated 81 MG TABLET.DR PO (10:36)
[2023-08-06] MEDS: Enoxaparin Sodium 40 MG/0.4 ML SYRINGE SUBCUT (10:36)
[2023-08-06] MEDS: 0.9 % Sodium Chloride Flush 3 ML SYRINGE IVFLUSH ×2 (10:36→20:51)
[2023-08-06] MEDS: Atorvastatin Calcium 80 MG TABLET PO (10:36)
[2023-08-06 11:01] LABS: Glucose, Whole Blood 161 mg/dL (60-115)
[2023-08-06 11:02] VITALS: BP 137/84; PULSE 79; RESP 20; TEMP 36.3; O2SAT 95
[2023-08-06] MEDS: Insulin Lispro 100 UNIT/ML 3 ML VIAL SUBCUT (11:41)
--- NOTE | 2023-08-06 13:26 | MHC.CM.PN ---
PT is recommending Acute Rehab; CM will follow.
--- NOTE | 2023-08-06 14:48 | HO.PM.IMPN ---
Subjective Subjective Date of Service: 08/06/23 Interval History: Complaining of right upper extremity weakness, decreased hand dynamics ax developer, denies headache, no lightheadedness, no dizziness, no fevers, no chills. No acute events since admission. Complaining of left-sided neck pain, denies injury, symptoms started yesterday. Seen by Physical therapy they recommend acute rehab and speech therapy recommend ground diet and thin liquids, crush pills and supervision during meals. Review of Systems All other system reviewed and are negative.. Physical Exam Vital Signs: Vital Signs: Last Vital Signs Temp 97.3 F 08/06/23 11:02 Pulse 79 08/06/23 11:02 Resp 20 08/06/23 11:02 BP 137/84 08/06/23 11:02 Pulse Ox 95 08/06/23 11:02 O2 Del Method Room Air 08/06/23 11:02 BMI result Body Mass Index 30.7 Const: Other: General awake alert x3, sitting comfortably in no acute distress. Neck tenderness left sternocleidomastoid muscle, no spasm,supple, no JVD. CVS regular rate rhythm, Respiratory lungs clear to auscultation, no respiratory distress, no wheeze, no rhonchi. Gastrointestinal abdomen soft, non tender, bowel sounds audible Extremities no edema. Neuro mild loss of right nasolabial fold, right upper extremity weakness with decreased hand dynamics ax developer, mild right lower extremity week, Speech clear. Skin bilateral upper extremity ecchymosis Psych appropriate affect Objective Data Active Medications Acetaminophen (Acetaminophen 325 Mg Tablet) 650 mg PO Q6H PRN PRN Reason: Pain, Mild (Pain Scale 1-3) Aspirin (Aspirin Enteric Coated 81 Mg Tablet.) 81 mg PO DAILY [facility] Last Admin: 08/06/23 10:36 Dose: 81 mg Documented By: ROSS Atorvastatin Calcium (Atorvastatin Calcium 80 Mg Tablet) 80 mg PO DAILY [facility] Last Admin: 08/06/23 10:36 Dose: 80 mg Documented By: ROSS Enoxaparin Sodium (Enoxaparin Sodium 40 Mg/0.4 Ml Syringe) 40 mg SUBCUT Q24H [facility] Last Admin: 08/06/23 10:36 Dose: 40 mg Documented By: ROSS Glucose (Glucose Gel 15 Gm Gel..Gram.) 15 gm PO Q15M PRN; Protocol PRN Reason: per Hypoglycemia Standing Ord. Dextrose (D10) 250 mls @ 750 mls/hr IV Q15M PRN; Protocol PRN Reason: per Hypoglycemia Standing Ord. Insulin Human Lispro (Insulin Lispro 100 Unit/Ml 3 Ml Vial) 0 [facility]; Protocol Last Admin: 08/06/23 11:41 Dose: 1 unit Documented By: ROSS Ondansetron HCl (Ondansetron Hcl 4 Mg/2 Ml Vial) 4 mg IVPUSH Q8H PRN PRN Reason: Nausea and Vomiting Senna (Sennosides 8.6 Mg Tablet) 17.2 mg PO BEDTIME PRN PRN Reason: Constipation Sodium Chloride (0.9 % Sodium Chloride Flush 3 Ml Syringe) 3 ml IVFSH [facility] Last Admin: 08/06/23 10:36 Dose: 3 ml Documented By: ROSS Labs 08/06/23 06:09 08/06/23 06:09 Labs: Laboratory Results - last 24 hr 08/05/23 08/05/23 08/06/23 16:00 19:47 06:09 MCV 92.5 MCH 31.1 MCHC 33.7 RDW 14.5 Plt Count 184 MPV 12.1 Immature Gran % (Auto) 0.4 Neut % (Auto) 74.6 H Lymph % (Auto) 13.4 L [place] % (Auto) 8.8 Eos % (Auto) 1.5 Baso % (Auto) 1.3 Lymph # (Auto) 1.1 L [place] # (Auto) 0.7 Eos # (Auto) 0.1 Baso # (Auto) 0.1 Abs Immat Gran (auto) 0.03 Absolute Neuts (auto) 5.9 Absolute Nucleated RBC 0.000 Nucleated RBC % (auto) 0.0 Anion Gap 14 Estim Creat Clear Calc 79.9 Estimated GFR > 60 POC Glucose 230 H 193 H Random Glucose 118 H Calcium 9.1 Triglycerides 181 H Cholesterol 239 H LDL Cholesterol, Calc 169 H HDL Cholesterol 34 L 08/06/23 08/06/23 06:55 10:47 MCV MCH MCHC RDW Plt Count MPV Immature Gran % (Auto) Neut % (Auto) Lymph % (Auto) [place] % (Auto) Eos % (Auto) Baso % (Auto) Lymph # (Auto) [place] # (Auto) Eos # (Auto) Baso # (Auto) Abs Immat Gran (auto) Absolute Neuts (auto) Absolute Nucleated RBC Nucleated RBC % (auto) Anion Gap Estim Creat Clear Calc Estimated GFR POC Glucose 126 H 161 H Random Glucose Calcium Triglycerides Cholesterol LDL Cholesterol, Calc HDL Cholesterol Assessment and Plan (1) Multiple cerebral infarctions: Status: Acute (2) Malignant hypertension: Status: Acute (3) Hyperlipidemia: Status: Acute (4) Cigarette smoker: Status: Acute Plan 77 year old male without any known significant past medical history who is a current 2PPD smoker for 50+ years admitted for further management of CVA/TIA #Acute multiple bilateral small CVA -persistent RUE and RLE weakness Multiple risk factor for stroke including smoking, hypertension, hypercholesterolemia and newly diagnosed diabetes -ct head negative for acute intracranial abnormality. CTA head/neck negative for large vessel occlusion but shows significant 70% focal stenosis of the proximal right cervical ICA and 50% focal stenosis of the proximal left ICA as well as atherosclerotic plaques causing moderate to severe focal stenosis in the left vertebral artery origin. -MRI brain showed multiple bilateral small atherothrombotic ischemic infarction -continue aspirin 81 mg, Lipitor 80 mg LDL 190,hemoglobin A1c elevated at 6.5% consistent with new onset type 2 diabetes will recommend low-carbohydrate diet and nutrition consult Seen by Neurology they recommend good blood pressure/cholesterol and blood sugar control and recommend echocardiogram to assess EF PT recommend acute rehab, speech therapy recommended ground diet and thin liquids. Follow echo report #Malignant hypertension -bp 217/96 on arrival, treated with IV labetalol and Norvasc, blood pressure dropped to 114/56, now trending back again, will avoid precipitous drop in blood pressure, follow BP closely and administer medication as needed # hyperlipidemia -total cholesterol 285, LDL 190 -started on atorvastatin 80 mg daily # new onset type 2 diabetes-without hyperglycemia -hemoglobin A1c 6.5%, goal less than 7.0% -monitor POC glucose, diabetic diet -Humalog on sliding scale -consider metformin on discharge # carotid artery stenosis/atherosclerosis -cont. statin, baby aspirin # cigarette smoker -declines nicotine replacement, counseling done # class 1 obesity -weight loss efforts recommended. DVT prophylaxis-Lovenox Full code Patient requires continued inpatient hospitalization for management of acute CVA with malignant hypertension requiring close monitoring, neuro checks, further evaluation with echocardiogram and safe disposition. Quality Stroke Does the patient have a stroke diagnosis?: Yes Reason for No Anti-thrombotic by Day Two: Drug treatment not indicated VTE Prior VTE?: No VTE Risk Level:: Medical - moderate - high VTE Device Contraindication: Treatment Not Indicated VTE Drug Contraindication: N/A - Med Ordered
[2023-08-06 15:21] VITALS: BP 172/73; PULSE 75; RESP 18; TEMP 36.4; O2SAT 96
[2023-08-06 15:35] LABS: Glucose, Whole Blood 122 mg/dL (60-115)
--- NOTE | 2023-08-06 18:07 | MHC.SL.SWA ---
Speech Pathologist Impression: Oropharyngeal dysphagia, esophageal dysphagia Risk of Aspiration Due to: Neurological Condition Dysphasia Diet Status: No changes at this time Liquid Consistency and Strategies for Safe Swallow: Liquid Intake Recommendation: Thin Liquid Intake Strategies: Small Sips Solid Food Consistency: Dietary Recommendations: Grnd/Mech Altered (NDD2) Additional Modifications to Solid Foods: Patient seen this morning for bedside swallow exam. Patient consumed dry sherman crackers and water. Slow oral phase secondary to edentulous status. No coughing or choking on thin liquid. However patient did say he was scared it was coming back up, but unable to spit anything up. Patient did not appear to be in any distress and reported that for the past two weeks, he expectorates solids and liquids at random. Question esophageal pathology. Recommend continue on GROUND/MECH ALTERED (NDD2) diet and THIN liquids, CRUSHED pills, direct supervision during meals. Patient may benefit from smaller meals more frequently throughout the day. Strategies recommended: small bites, eat/drink with a slow pace, alternate solids liquids, sit upright during meal and at least 30 min afterwards. FIELD MARKETING LEAD will continue to follow. Oral Medication Intake: Crushed with Puree Please contact the pharmacy regarding appropriate crushable or liquid drug formulations that are available whenever modified delivery is recommended. Compensatory Strategies and Precautions to be Taken for Safe Swallow: Sitting Upright (90 deg) Double Swallow No Straw Small Bites and Sips Alternate Liquids/Solids Rate of Ingestion Change Avoid Specific Foods Supervision While Eating and Drinking for Safe Swallow: Total Supervision (1:1) Foods to Avoid: Hard, dry, or sticky foods Swallowing Recommended Treatments: Compens. Strategy Educat. Recommendation for Speech: Inpatient Speech Therapy Comment: Frequency/Duration: M-F PRN Date Range for Service Req: Timeline to reassess: Button Cutter Clinican/Clinical Fellow: No Supervisory Statement: I have reviewed and agree with the student/clinical fellow's documentation: N/A Speech Language Pathologist: Nicole Lincoln M.A., CCC-FIELD MARKETING LEAD
[2023-08-06 20:00] VITALS: BP 175/85; PULSE 76; RESP 18; TEMP 36.3; O2SAT 96
[2023-08-06 21:25] LABS: Glucose, Whole Blood 126 mg/dL (60-115)
[2023-08-07] VITALS (8 sets, daily range): BP systolic 162–192; BP diastolic 72–88; PULSE 74–104; RESP 16–20; TEMP 36.1–37.1; O2SAT 94–97
[2023-08-07 08:11] LABS: Glucose, Whole Blood 122 mg/dL (60-115)
[2023-08-07] MEDS: Enoxaparin Sodium 40 MG/0.4 ML SYRINGE SUBCUT (09:23)
[2023-08-07] MEDS: amLODIPine Besylate 5 MG TABLET PO ×2 (09:23→12:37)
[2023-08-07] MEDS: Atorvastatin Calcium 80 MG TABLET PO (09:23)
[2023-08-07] MEDS: Aspirin Enteric Coated 81 MG TABLET.DR PO (09:23)
[2023-08-07] MEDS: 0.9 % Sodium Chloride Flush 3 ML SYRINGE IVFLUSH (09:24)
--- NOTE | 2023-08-07 10:43 | MHC.SL.SWA ---
Speech Pathologist Impression: Risk of aspiration, oral phase dysphagia, pharyngoesophageal dysphagia Risk of Aspiration Due to: Neurological Condition Dysphasia Diet Status: No change at this time Liquid Consistency and Strategies for Safe Swallow: Liquid Intake Recommendation: Thin Liquid Intake Strategies: Small Sips Double Swallow Solid Food Consistency: Dietary Recommendations: Grnd/Mech Altered (NDD2) Additional Modifications to Solid Foods: Mildly slowed oral phase secondary to edentulous status, patient says his dentures were left at home, complete oral clearance noted post swallow. No overt s/s of aspiration observed at bedside. Patient reports history of throat cancer, multiple throat surgeries, and onset of dysphagia 3 years ago. Patient's symptoms (i.e. food/liquid coming back up, globus sensation) suggest possible esophageal pathology, thus he may benefit from G.I. consultation. Recommend continue on GROUND/MECH ALTERED (NDD2) diet for ease of mastication and THIN liquids, with pills CRUSHED or WHOLE in PUREE, direct supervision during meals. Patient may benefit from smaller meals more frequently throughout the day. Strategies recommended: small bites, eat/drink with a slow pace, alternate solids liquids, sit upright during meal and at least 30 min afterwards. ANTHROPOLOGY LECTURER will continue to follow. Oral Medication Intake: Crushed with Puree Please contact the pharmacy regarding appropriate crushable or liquid drug formulations that are available whenever modified delivery is recommended. Compensatory Strategies and Precautions to be Taken for Safe Swallow: Sitting Upright (90 deg) Double Swallow Small Bites and Sips Alternate Liquids/Solids Rate of Ingestion Change Avoid Specific Foods Supervision While Eating and Drinking for Safe Swallow: Total Supervision (1:1) Foods to Avoid: Hard, dry, or sticky foods Swallowing Recommended Treatments: Compens. Strategy Educat. Recommendation for Speech: Inpatient Speech Therapy Frequency/Duration: M-F PRN Date Range for Service Req: Timeline to reassess: Retirement Village Manager Clinican/Clinical Fellow: No Supervisory Statement: I have reviewed and agree with the student/clinical fellow's documentation: N/A Speech Language Pathologist: Nicole Lincoln M.A., [facility]-ANTHROPOLOGY LECTURER
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
--- NOTE | 2023-08-07 11:19 | MHC.CM.PN ---
Pt is medically cleared for discharge to [facility] today via BLS/[facility] at 3:30pm.
[2023-08-07 11:52] LABS: Glucose, Whole Blood 160 mg/dL (60-115)
--- NOTE | 2023-08-07 12:15 | P.PNIM_ITS ---
Subjective Subjective Date of Service: 08/07/23 Physical Exam 2 Vital Signs: Vital Signs: Last Vital Signs Temp 97.3 F 08/07/23 11:34 Pulse 74 08/07/23 11:34 Resp 20 08/07/23 11:34 BP 186/88 H 08/07/23 11:34 Pulse Ox 97 08/07/23 11:34 O2 Del Method Room Air 08/07/23 11:34 BMI result Body Mass Index 30.7 Objective Data Active Medications Acetaminophen (Acetaminophen 325 Mg Tablet) 650 mg PO Q6H PRN PRN Reason: Pain, Mild (Pain Scale 1-3) Amlodipine Besylate (Amlodipine Besylate 5 Mg Tablet) 5 mg PO DAILY [facility]; Protocol Last Admin: 08/07/23 09:23 Dose: 5 mg Documented By: PIPPA Aspirin (Aspirin Enteric Coated 81 Mg Tablet.) 81 mg PO DAILY [facility] Last Admin: 08/07/23 09:23 Dose: 81 mg Documented By: PIPPA Atorvastatin Calcium (Atorvastatin Calcium 80 Mg Tablet) 80 mg PO DAILY [facility] Last Admin: 08/07/23 09:23 Dose: 80 mg Documented By: PIPPA Enoxaparin Sodium (Enoxaparin Sodium 40 Mg/0.4 Ml Syringe) 40 mg SUBCUT Q24H [facility] Last Admin: 08/07/23 09:23 Dose: 40 mg Documented By: PIPPA Glucose (Glucose Gel 15 Gm Gel..Gram.) 15 gm PO Q15M PRN; Protocol PRN Reason: per Hypoglycemia Standing Ord. Dextrose (D10) 250 mls @ 750 mls/hr IV Q15M PRN; Protocol PRN Reason: per Hypoglycemia Standing Ord. Insulin Human Lispro (Insulin Lispro 100 Unit/Ml 3 Ml Vial) 0 unit SUBCUT QIDACHS [facility]; Protocol Last Admin: 08/07/23 09:26 Dose: Not Given Documented By: PIPPA Non-Admin Reason: No Insulin Coverage Ondansetron HCl (Ondansetron Hcl 4 Mg/2 Ml Vial) 4 mg IVPUSH Q8H PRN PRN Reason: Nausea and Vomiting Senna (Sennosides 8.6 Mg Tablet) 17.2 mg PO BEDTIME PRN PRN Reason: Constipation Sodium Chloride (0.9 % Sodium Chloride Flush 3 Ml Syringe) 3 ml IVFLUSH QSHIFT [facility] Last Admin: 08/07/23 09:24 Dose: 3 ml Documented By: [email or web address] Labs 08/06/23 06:09 08/06/23 06:09 Labs: Laboratory Results - last 24 hr 08/06/23 08/06/23 08/07/23 15:27 20:49 07:45 POC Glucose 122 H 126 H 122 H 08/07/23 11:32 POC Glucose 160 H Quality Stroke Does the patient have a stroke diagnosis?: No Reason for No Anti-thrombotic by Day Two: Drug treatment not indicated VTE Prior VTE?: No VTE Risk Level:: Medical - moderate - high VTE Device Contraindication: Treatment Not Indicated VTE Drug Contraindication: N/A - Med Ordered
--- NOTE | 2023-08-07 12:30 | MHC.CLN ---
RE: CONSULT DISCUSSED FOODS THAT AFFECT BLOOD SUGAR AND CHOLESTEROL. PT ADMITTING TO NOT REFILLING MEDICATIONS X1 YEAR DUE TO NOT FOLLOWING UP WITH PCP. RECOMMENDED PT FIND NEW PCP AND ENCOURAGED MEDICATION COMPLIANCE. PT COOKS MEALS FOR HIMSELF AT HOME-HAS SOME LIMITED FAMILY SUPPORT FROM STEP DAUGHTER. HANDOUT GIVEN AND LEFT WITH PT TO TAKE HOME FOR FOLLOW UP. RECOMMEND PT FOLLOW UP WITH OUT PATIENT RD -NAMES AND CONTACT INFO GIVEN TO PT SEE TEACHING RECORD
[2023-08-07] MEDS: Insulin Lispro 100 UNIT/ML 3 ML VIAL SUBCUT (12:37)
--- NOTE | 2023-08-07 13:43 | MHC.STROKE ---
Met with patient on 08/05 to review stroke education. See Stroke Education intervention Pt was engaging and open to discussion regarding plan of care and lifestyle changes. We also spoke about his cigarette smoking. I asked how the patient was feeling in regards to his smoking and he stated I'm done with it . We discussed that it can be difficult to stop smoking cold and I offered to discuss smoking cessation options with the hospitalist including a nicotene patch. Pt declined patch during our conversation but stated that he would let us know if he felt he was struggling with the nicotene withdrawl. Will continue to assist as needed.
[2023-08-07 15:36] LABS: Glucose, Whole Blood 99 mg/dL (60-115)
== END 2023-08-07 18:12 | disposition home or self-care (01) | DRG 65 ==
LOC: HO.ED 10:11 → HO.EDOVER 11:28 → HO.IMC 13:51
PROVIDERS: Student in an Organized Health Care Education/Training Program; Admitting Provider Physician Assistant; Emergency Provider Student in an Organized Health Care Education/Training Program; Visit Provider Hospitalist
DX: I63.9 Cerebral infarction, unspecified (principal); G81.91 Hemiplegia, unspecified affecting right dominant side; I25.10 Atherosclerotic heart disease of native coronary artery without angina pectoris; E78.5 Hyperlipidemia, unspecified; E11.9 Type 2 diabetes mellitus without complications; I65.22 Occlusion and stenosis of left carotid artery; E66.8 Other obesity; R29.708 NIHSS score 8; Z68.30 Body mass index [BMI] 30.0-30.9, adult; R20.2 Paresthesia of skin
CPT/HCPCS: 36415; 70450; 70496; 70498; 70551; 73590; 80048; 80061; 82550; 82947; 83036; 84484; 85025; 85610; 85730; 92526; 92610; 92950; 93005; 93306; 97116; 97163; 97167; 97530; 99285; J1610; J1650; J1920; J2270; Q9957; Q9967

== ENCOUNTER → 2023-08-05 08:54 | Outpatient (BNV) | payer MEDICARE, MEDICAID, SELFPAY | PROVIDERS: Admitting Provider Physician Assistant; Emergency Provider Student in an Organized Health Care Education/Training Program; Visit Provider Internal Medicine | DX: I44.7 Left bundle-branch block, unspecified (principal) | CPT/HCPCS: 93010 ==

== ENCOUNTER 2023-08-05 11:21 | Outpatient (BNV) | payer MEDICARE, MEDICAID, SELFPAY | END 2023-08-06 07:00 | PROVIDERS: Admitting Provider Physician Assistant; Emergency Provider Student in an Organized Health Care Education/Training Program; Visit Provider Internal Medicine | DX: I63.9 Cerebral infarction, unspecified (principal) | CPT/HCPCS: 93306 ==

== ENCOUNTER → 2023-08-05 11:21 | Outpatient (BNV) | payer MEDICARE, MEDICAID, SELFPAY | PROVIDERS: Admitting Provider Physician Assistant; Emergency Provider Student in an Organized Health Care Education/Training Program; Visit Provider Physician Assistant | DX: G45.9 Transient cerebral ischemic attack, unspecified (principal); I10 Essential (primary) hypertension | CPT/HCPCS: 99223; 99233; 99239; 99499 ==

== ENCOUNTER → 2023-08-05 11:21 | Outpatient (BNV) | payer MEDICARE, MEDICAID, SELFPAY | PROVIDERS: Admitting Provider Physician Assistant; Emergency Provider Student in an Organized Health Care Education/Training Program; Visit Provider Psychiatry & Neurology Neurology | DX: I63.30 Cerebral infarction due to thrombosis of unspecified cerebral artery (principal); I10 Essential (primary) hypertension | CPT/HCPCS: 99222 ==